=== PATIENT | male | born 1935 | race Asian ===

== ENCOUNTER 2019-04-05 18:49 | Emergency (ER) | payer OTHER ==
[~2019-04-05] VITALS: Ht 175.3 cm; Wt 72.6 kg
[2019-04-05 19:39] LABS: PLATELET COUNT 245 K/uL (142-355)
[2019-04-05 19:46] LABS: POTASSIUM 3.9 mmol/L (3.6-5.2)
[2019-04-05 20:17] VITALS: BP 169/74; TEMP 98.8
[2019-04-05] MEDS ORDERED: MULTIVITAMIN PO (23:04)
[2019-04-05] MEDS ORDERED: DOK100 MG PO (23:05)
[2019-04-05] MEDS ORDERED: FERROUS SULF325 M1 PO (23:07)
[2019-04-05] MEDS ORDERED: LISI20TA11 PO (23:08)
[2019-04-05] MEDS ORDERED: KP FOLIC ACID1 MG PO (23:09)
[2019-04-05] MEDS ORDERED: TYLENOL325 MG PO (23:11)
[2019-04-05] MEDS ORDERED: LEVE500T5 PO (23:12)
[2019-04-05] MEDS ORDERED: MIRTAZAPINE7.5 MG PO (23:14)
[2019-04-05] MEDS ORDERED: TERAZOSIN1 MG PO (23:18)
[2019-04-05] MEDS ORDERED: VITAMIN D50000 UNIT PO (23:24)
== END 2019-04-05 20:15 | disposition other institution (70) ==
LOC: ED 18:49
PROVIDERS: Emergency Medicine
DX: F28 Other psychotic disorder not due to a substance or known physiological condition (principal); R00.1 Bradycardia, unspecified; Z04.6 Encounter for general psychiatric examination, requested by authority
CPT/HCPCS: 36415; 80053; 80307; 80320; 80329; 81000; 85027; 93005; 99285